=== PATIENT | male | born 1940 | race Caucasian/White ===

== ENCOUNTER 2019-03-08 09:38 | Inpatient (IN) | payer MEDICARE ==
[~2019-03-08] VITALS: Ht 182.9 cm; Wt 99.9 kg
[2019-03-08] MEDS ORDERED: GLIP2.5ER PO (10:05)
[2019-03-08] MEDS ORDERED: HYDCHL25 PO (10:05)
[2019-03-08] MEDS ORDERED: Aspir 8181 MG PO (10:05)
[2019-03-08] MEDS ORDERED: AMLO10 PO (10:06)
[2019-03-08] MEDS ORDERED: PRAV20 PO (10:06)
[2019-03-08] MEDS ORDERED: TELM80 PO (10:06)
[2019-03-08] MEDS ORDERED: CENTRUM SILVER1 EAC2 PO (10:07)
[2019-03-08] MEDS ORDERED: FOLI400 PO (10:07)
[2019-03-08] MEDS ORDERED: ASCO500 PO (10:07)
[2019-03-08] MEDS ORDERED: CALCIUM 600 +1 EA11 PO (10:07)
[2019-03-08] MEDS ORDERED: VITAMIN D31000 UNI2 PO (10:08)
[2019-03-08 10:17] LABS: BASOPHILS ABSOLUTE AUTO 0.02 K/mm3 (0.00-0.23); BASOPHILS PERCENT AUTO 0 % (0-2); EOSINOPHILS ABSOLUTE AUTO 0.01 K/mm3 (0.00-0.68); EOSINOPHILS PERCENT AUTO 0 % (0-6); Hematocrit 21.5 % (37.0-53.0); IMMATURE GRAN ABSOLUTE AUTO 0.05 K/mm3 (0.00-0.10); IMMATURE GRAN PERCENT AUTO 0 % (0-1); LYMPHOCYTES ABSOLUTE AUTO 1.09 K/mm3 (0.84-5.20); LYMPHOCYTES PERCENT AUTO 9 % (21-46); MONOCYTES ABSOLUTE AUTO 0.62 K/mm3 (0.16-1.47); MONOCYTES PERCENT AUTO 5 % (4-13); Mean Corpuscular HGB Conc 32.6 g/dL (31.5-36.5); Mean Corpuscular Volume 95 fL (80-100); Mean Platelet Volume 10.8 fL (9.1-12.4); NEUTROPHILS ABSOLUTE AUTO 10.43 K/mm3 (1.96-9.15); NEUTROPHILS PERCENT AUTO 85 % (41-73); Platelet Count 212 K/mm3 (150-400); RDW Coefficient Variation 13.3 % (11.7-14.2); RDW Standard Deviation 46.2 fL (35.1-46.3); Red Blood Cell Count 2.26 M/mm3 (4.30-5.90); White Blood Cell Count 12.22 K/mm3 (4.00-11.30)
[2019-03-08 10:25] LABS: Chloride (POC) 106 mmol/L (98-108); Creatinine (POC) 2.4 mg/dL (0.8-1.3); Glucose (ISTAT POC) 162 mg/dL (70-99); Hemoglobin (POC) 6.1 g/dL (13.5-17.5); Potassium (POC) 3.7 mmol/L (3.5-5.5); Sodium (POC) 139 mmol/L (135-148); Total CO2 (POC) 20 mmol/L (21-32)
[2019-03-08 10:55] LABS: Bilirubin, Total 0.3 mg/dL (0.1-1.0); Bun/Creatinine Ratio 43.6 (12.0-20.0); Calcium, Blood 8.7 mg/dL (8.5-10.1); Creatinine, Blood 2.02 mg/dL (0.60-1.20); Potassium, Blood 3.7 mmol/L (3.5-5.5)
[2019-03-08 11:19] LABS: International Normalized Ratio 0.97; Prothrombin Time Results 10.3 Sec (9.7-11.5)
[2019-03-08] MEDS ORDERED: GLIP5 PO (12:10)
--- NOTE | 2019-03-08 12:21 | NUR ---
Call from ED BRIEN Tam. States that they are starting the first unit of blood in the ED; report will be called in about 20 minutes.
--- NOTE | 2019-03-08 16:28 | NUR ---
03/08/19 1628 Marko Byrd History, Chart, Medications and Allergies reviewed before start of procedure.MONITOR INTACT WITH CONTINUOUS PULSE OXIMETRY AND INTERMITTENT BP.3-LEAD EKG REVIEWED WITH PHYSICIAN PRIOR TO START OF PROCEDURE.O2 VIA N/C INTACT THROUGHOUT SEDATION/PROCEDURE. Patient confirms NPO status and agrees with scheduled surgery.PATIENT DETERMINED TO BE ASA APPROPRIATE FOR PROPOFOL SEDATION PRIOR TO START OF PROCEDURE BY DR. MOLINA.
--- NOTE | 2019-03-08 17:11 | NUR ---
The pt returned from EGD. He is awake, cooperative, and conversant.
--- NOTE | 2019-03-08 18:54 | NUR ---
ASSESSED LUNG SOUNS POST BLOOD TRANSFUSION, CLEAR 4 Q
[2019-03-08 19:23] LABS: Hematocrit 24.7 % (37.0-53.0); Hemoglobin 8.1 g/dL (13.5-17.5)
[2019-03-09 00:32] LABS: Hematocrit 21.7 % (37.0-53.0); Hemoglobin 7.4 g/dL (13.5-17.5)
[2019-03-09 04:55] LABS: BASOPHILS ABSOLUTE AUTO 0.03 K/mm3 (0.00-0.23); BASOPHILS PERCENT AUTO 0 % (0-2); EOSINOPHILS ABSOLUTE AUTO 0.07 K/mm3 (0.00-0.68); EOSINOPHILS PERCENT AUTO 1 % (0-6); Hematocrit 20.7 % (37.0-53.0); Hematocrit 21.9 % (37.0-53.0); Hemoglobin 7.2 g/dL (13.5-17.5); IMMATURE GRAN ABSOLUTE AUTO 0.06 K/mm3 (0.00-0.10); IMMATURE GRAN PERCENT AUTO 1 % (0-1); LYMPHOCYTES ABSOLUTE AUTO 1.33 K/mm3 (0.84-5.20); LYMPHOCYTES PERCENT AUTO 17 % (21-46); MONOCYTES PERCENT AUTO 8 % (4-13); Mean Corpuscular HGB 30.2 pg (26.0-34.0); Mean Corpuscular HGB Conc 33.8 g/dL (31.5-36.5); Mean Corpuscular Volume 89 fL (80-100); Mean Platelet Volume 10.9 fL (9.1-12.4); NEUTROPHILS ABSOLUTE AUTO 5.82 K/mm3 (1.96-9.15); NEUTROPHILS PERCENT AUTO 74 % (41-73); Platelet Count 142 K/mm3 (150-400); RDW Coefficient Variation 16.2 % (11.7-14.2); RDW Standard Deviation 51.8 fL (35.1-46.3); Red Blood Cell Count 2.32 M/mm3 (4.30-5.90); White Blood Cell Count 7.91 K/mm3 (4.00-11.30)
[2019-03-09 05:15] LABS: Bun/Creatinine Ratio 33.2 (12.0-20.0); Calcium, Blood 8.2 mg/dL (8.5-10.1); Creatinine, Blood 1.99 mg/dL (0.60-1.20); Potassium, Blood 3.8 mmol/L (3.5-5.5)
[2019-03-09 08:33] LABS: Hematocrit 24.9 % (37.0-53.0); Hemoglobin 8.2 g/dL (13.5-17.5)
--- NOTE | 2019-03-09 09:52 | NUR ---
DR CALLED TO CK ON PT, STATED HE EXPECTED TO SCOPE AFTER 1400 EARLIER IF POSSIBLE, PT COULD HAVE CLEAR LIQUID UNTIL 1130, PROVIDED TRAY FROM BREAKFAST
[2019-03-09 12:29] LABS: Hematocrit 23.9 % (37.0-53.0); Hemoglobin 7.7 g/dL (13.5-17.5)
--- NOTE | 2019-03-09 13:26 | NUR ---
PICKED UP FOR SURGERY, NURSE REQUESTED DC OF FLUIDS AND TELE, SELF TRANSFERED TO [facility], FOLLOWED
--- NOTE | 2019-03-09 13:30 | NUR ---
History, Chart, Medications and Allergies reviewed before start of procedure. Lungs clear T/O to Auscultation. Patient confirms NPO status and agrees with scheduled surgery. Pre-Op teaching done. Pt verbalizes understanding.
--- NOTE | 2019-03-09 14:06 | NUR ---
03/09/19 1406 Marko Byrd History, Chart, Medications and Allergies reviewed before start of procedure.MONITOR INTACT WITH CONTINUOUS PULSE OXIMETRY AND INTERMITTENT BP.3-LEAD EKG REVIEWED WITH PHYSICIAN PRIOR TO START OF PROCEDURE.O2 VIA N/C INTACT THROUGHOUT SEDATION/PROCEDURE. Patient confirms NPO status and agrees with scheduled surgery.See Anesthesia record.
--- NOTE | 2019-03-09 15:17 | NUR ---
The pt returned from EGD, awake, alert and oriented, very pleasantly conversant. Clear liquids provided for him, which he is tolerating well at this time. Vital signs are stable.
--- NOTE | 2019-03-09 15:55 | NUR ---
down for 2nd scope, small changes made, dr wanting to watch blood level and see if change necessary, at bedside, call light in reach, frequent vs checks, a+o, good color, denies any pain or other symptom of loss of blood, fluids infusing
[2019-03-09 16:29] LABS: Hematocrit 25.5 % (37.0-53.0); Hemoglobin 8.2 g/dL (13.5-17.5)
--- NOTE | 2019-03-09 17:28 | NUR ---
Dr. Thomas here to see the patient. He is sitting up in bed, has not passed any stools.
[2019-03-09 20:19] LABS: Hematocrit 24.2 % (37.0-53.0); Hemoglobin 7.9 g/dL (13.5-17.5)
--- NOTE | 2019-03-09 22:00 | NUR ---
PROVIDER UPDATED CALLED PROVIDER TO UPDATE THAT PATIENT WAS HAVING CONTINUED ANGINA (CHRONIC ISSUE). NOTIFIED TO PROVIDER PATIENTS ANGINA, MEDICAL STATUS AND 9 BEAT RUN OF VTACH PER CHARGE COORDINATOR. ORDERS GIVEN AND COMPLETED.
--- NOTE | 2019-03-09 23:12 | NUR ---
TRANSFER SUMMARY (FROM PCU TO [facility]) PATIENT ALERT AND ORIENTED X4 AND INDEPENDANT IN THE ROOM. PATIENTS VSS ON ROOM AIR. MED NO TELE STATUS. PATIENT DENIES ANY PAIN OR DISCOMFORT, NO BLOOD NOTED PER BOWEL/RECTUM THIS SHIFT. REPORTED TO EDDA PINEDA RN ON MEDICAL FLOOR FOR PATIENT TRANSFER. PATIENT LEFT UNIT VIA WHEEL CHAIR WITH NO ACUTE EVENTS OR CHANGES NOTED.
[2019-03-10 00:49] LABS: Hematocrit 23.2 % (37.0-53.0); Hemoglobin 7.5 g/dL (13.5-17.5)
[2019-03-10 01:05] LABS: Albumin, Blood 2.6 g/dL (3.4-5.0); Anion Gap 7 mmol/L (6-16); Blood Urea Nitrogen 41 mg/dL (8-24); Bun/Creatinine Ratio 23.7 (12.0-20.0); CO2, Blood 23 mmol/L (21-32); Calcium, Blood 7.6 mg/dL (8.5-10.1); Chloride, Blood 116 mmol/L (98-108); Creatinine, Blood 1.73 mg/dL (0.60-1.20); Glomerular Filtration Rate 41 (60-); Glucose, Blood 114 mg/dL (70-99); Phosphorus, Blood 4.2 mg/dL (2.5-4.9); Potassium, Blood 3.9 mmol/L (3.5-5.5); Sodium, Blood 146 mmol/L (136-145)
[2019-03-10 04:54] LABS: Hemoglobin 7.4 g/dL (13.5-17.5)
[2019-03-10 08:31] LABS: Hematocrit 23.3 % (37.0-53.0); Hemoglobin 7.6 g/dL (13.5-17.5)
[2019-03-10 12:34] LABS: Hematocrit 24.8 % (37.0-53.0); Hemoglobin 7.9 g/dL (13.5-17.5)
--- NOTE | 2019-03-10 13:37 | NUR ---
Pt. is in bed resting and talking with spouse in the room pt. reports doing fine offered prayers .
[2019-03-10] MEDS ORDERED: PANT40 PO (17:41)
[2019-03-10] MEDS ORDERED: SUCR1 PO (17:42)
--- NOTE | 2019-03-10 18:37 | NUR ---
DISCHARGE PATIENT AMBULATED SELF OUT OF FACILITY. WITH HIM. RETURNING TO [facility]. FOLLOW UP APPOINTMENT WITH PCP SCHEDULED FOR THURSDAY. WILL GET CBC AT THEIR LOCAL LAB ON THURSDAY. AND PATIENT AWARE OF THE NEED FOR THESE LABS. NO ACUTE ISSUES NOTED.
== END 2019-03-10 18:16 | disposition home or self-care (01) | DRG 378 ==
LOC: ER 09:38 → PCU 11:50 → MEDS 03-09 22:41
PROVIDERS: Emergency Medicine; Internal Medicine Gastroenterology; ADMIT Internal Medicine
PROC: 0W3P8ZZ Control Bleeding in Gastrointestinal Tract, Via Natural or Artificial Opening Endoscopic (ICD-10-PCS; principal; 2019-03-08 16:00)
PROC: 0D578ZZ Destruction of Stomach, Pylorus, Via Natural or Artificial Opening Endoscopic (ICD-10-PCS; 2019-03-09 14:00)
DX: K29.61 Other gastritis with bleeding (principal); D62 Acute posthemorrhagic anemia; I38 Endocarditis, valve unspecified; K55.20 Angiodysplasia of colon without hemorrhage; K29.81 Duodenitis with bleeding; K22.11 Ulcer of esophagus with bleeding; Z79.82 Long term (current) use of aspirin; Z79.84 Long term (current) use of oral hypoglycemic drugs; I25.10 Atherosclerotic heart disease of native coronary artery without angina pectoris; Z96.651 Presence of right artificial knee joint; E78.5 Hyperlipidemia, unspecified; M19.90 Unspecified osteoarthritis, unspecified site; Z95.3 Presence of xenogenic heart valve; N18.3 Chronic kidney disease, stage 3 (moderate); I12.9 Hypertensive chronic kidney disease with stage 1 through stage 4 chronic kidney disease, or unspecified chronic kidney disease; E11.22 Type 2 diabetes mellitus with diabetic chronic kidney disease
CPT/HCPCS: 36415; 36430; 80047; 80048; 80053; 80069; 82272; 85014; 85018; 85025; 85610; 85730; 86850; 86900; 86901; 86923; 93005; 93010; 96365; 96366; 96376; 99285-25; C9113; J0171; J2704; J7030; J7120; P9016